=== PATIENT | female | born 1990 | race Caucasian/White ===

== ENCOUNTER 2017-02-09 19:29 | Emergency (ER) | payer SELFPAY | END 2017-02-09 21:45 | disposition home or self-care (01) | LOC: D.ER 19:29 | DX: K04.7 Periapical abscess without sinus (principal); T14.8 Other injury of unspecified body region; X58.XXXA Exposure to other specified factors, initial encounter; Y93.89 Activity, other specified; Y92.89 Other specified places as the place of occurrence of the external cause; F17.200 Nicotine dependence, unspecified, uncomplicated ==

== ENCOUNTER 2017-06-16 19:11 | Emergency (ER) | payer SELFPAY ==
[2011-04-15 10:49] VITALS: BMI 19.2
[2017-06-16 19:43] LABS: APPEARANCE HAZY (CLEAR); BILIRUBIN NEGATIVE (NEGATIVE); COLOR YELLOW (YELLOW); GLUCOSE NEGATIVE (NEGATIVE); KETONE NEGATIVE (NEGATIVE); LEUKOCYTE ESTERASE TRACE (NEGATIVE); NITRITE NEGATIVE (NEGATIVE); PH 5.5 (5.0-6.0); PROTEIN NEGATIVE (NEGATIVE); UROBILINOGEN NORMAL (NORMAL)
[2017-06-16 19:44] LABS: HCG URINE NEGATIVE (NEGATIVE)
[2017-06-16 19:58] LABS: BACTERIA MANY /hpf (NONE SEEN); GRANULAR CAST RARE /lpf (NONE SEEN); HYALINE CAST OCC /lpf (NONE SEEN); MUCUS <1+ /lpf (NONE SEEN); RED CELLS - URINE 0-5 /hpf (0-5)
[2017-06-16 19:59] LABS: AMORPHOUS SEDIMENT <1+ /lpf (NONE SEEN)
== END 2017-06-16 20:17 | disposition home or self-care (01) ==
LOC: D.ER 19:11
PROVIDERS: Emergency Medicine
DX: F19.939 Other psychoactive substance use, unspecified with withdrawal, unspecified (principal); S02.5XXA Fracture of tooth (traumatic), initial encounter for closed fracture; X58.XXXA Exposure to other specified factors, initial encounter; Y93.89 Activity, other specified; Y92.89 Other specified places as the place of occurrence of the external cause; K08.89 Other specified disorders of teeth and supporting structures; R53.83 Other fatigue; R42 Dizziness and giddiness

== ENCOUNTER 2017-06-22 16:14 | Emergency (ER) | payer SELFPAY ==
[2011-04-15 10:49] VITALS: BMI 19.2
[2017-06-22 17:19] LABS: BASOPHILS 0.6 % (0-2); EOSINOPHILS 8.4 % (0-7); HEMATOCRIT 40.7 % (36.0-48.0); IMMATURE GRANULOCYTES 0.1 % (0-5); LYMPHOCYTES 18.2 % (15-50); MCH 28.3 pg (26.0-34.0); MCHC 31.9 g/dL (31.0-37.0); MCV 88.7 fL (80.0-100.0); MONOCYTES 6.5 % (2-11); NEUTROPHILS 66.2 % (40-80); PLATELET COUNT 273 10x3/uL (130-400); RBC 4.59 10x6/uL (4.00-5.40); RDW 14.6 % (11.5-14.5)
[2017-06-22 17:36] LABS: ALBUMIN 4.4 g/dL (3.4-5.0); ALKALINE PHOSPHATASE 72 U/L (46-116); ALT (SGPT) 16 U/L (10-68); BILIRUBIN - TOTAL 0.26 mg/dL (0.2-1.3); CALC OSMOLALITY 276 mosm/kg (275-300); CALCIUM 8.7 mg/dL (8.5-10.1); CARBON DIOXIDE 27.1 mmol/L (21.0-32.0); CHLORIDE - SERUM 104 mmol/L (98-107); CREATININE - SERUM 0.6 mg/dL (0.6-1.3); GLUCOSE 96 mg/dL (74-106); POTASSIUM - SERUM 4.6 mmol/L (3.5-5.1); PROTEIN - SERUM 7.4 g/dL (6.4-8.2); SODIUM 138 mmol/L (136-145); UREA NITROGEN 14 mg/dL (7-18); eGFR NON AFRICAN AMERICAN > 90 mL/min (90-120)
[2017-06-22 19:22] LABS: HCG URINE NEGATIVE (NEGATIVE)
[2017-06-22 19:28] LABS: APPEARANCE CLEAR (CLEAR); BILIRUBIN NEGATIVE (NEGATIVE); COLOR YELLOW (YELLOW); GLUCOSE NEGATIVE (NEGATIVE); KETONE NEGATIVE (NEGATIVE); LEUKOCYTE ESTERASE NEGATIVE (NEGATIVE); NITRITE NEGATIVE (NEGATIVE); PROTEIN NEGATIVE (NEGATIVE); UROBILINOGEN NORMAL (NORMAL)
[2017-06-22 19:30] LABS: UDS - AMPHET NEGATIVE QUAL (NEGATIVE); UDS - BARB NEGATIVE QUAL (NEGATIVE); UDS - BENZO NEGATIVE QUAL (NEGATIVE); UDS - COCAINE NEGATIVE QUAL (NEGATIVE); UDS - METH NEGATIVE QUAL (NEGATIVE); UDS - OPIATE NEGATIVE QUAL (NEGATIVE); UDS - PCP NEGATIVE QUAL (NEGATIVE); UDS - THC NEGATIVE QUAL (NEGATIVE)
== END 2017-06-22 20:20 | disposition home or self-care (01) ==
LOC: D.ER 16:14
PROVIDERS: Emergency Medicine
DX: T43.595A Adverse effect of other antipsychotics and neuroleptics, initial encounter (principal); Y92.89 Other specified places as the place of occurrence of the external cause; F17.200 Nicotine dependence, unspecified, uncomplicated

== ENCOUNTER 2019-09-26 12:06 | Emergency (ER) | payer MEDICAID ==
[~2019-09-26] VITALS: Ht 157.5 cm; Wt 46.8 kg
[2019-09-26 12:17] VITALS: Ht 157.5 cm; Wt 46.8 kg
[2019-09-26 12:56] LABS: BASOPHILS 0.3 % (0-2); EOSINOPHILS 3.1 % (0-7); HEMATOCRIT 40.8 % (36.0-48.0); HEMOGLOBIN 13.3 g/dL (12-16); IMMATURE GRANULOCYTES 0.1 % (0-5); LYMPHOCYTES 19.3 % (15-50); MCH 28.7 pg (26.0-34.0); MCHC 32.6 g/dL (31.0-37.0); MCV 88.1 fL (80.0-100.0); MEAN PLATELET VOLUME 10.1 fL (7.4-10.4); MONOCYTES 8.6 % (2-11); NEUTROPHILS 68.6 % (40-80); PLATELET COUNT 258 10x3/uL (130-400); RBC 4.63 10x6/uL (4.00-5.40); RDW 14.3 % (11.5-14.5)
[2019-09-26 13:03] LABS: CALC OSMOLALITY 273 mosm/kg (275-300); CALCIUM 9.3 mg/dL (8.5-10.1); CARBON DIOXIDE 25.7 mmol/L (21.0-32.0); CHLORIDE - SERUM 103 mmol/L (98-107); CREATININE - SERUM 0.6 mg/dL (0.6-1.3); GLUCOSE 95 mg/dL (74-106); POTASSIUM - SERUM 3.8 mmol/L (3.5-5.1); SODIUM 138 mmol/L (136-145); UREA NITROGEN 7 mg/dL (7-18); eGFR NON AFRICAN AMERICAN > 90 mL/min (90-120)
[2019-09-26 13:15] LABS: ALKALINE PHOSPHATASE 66 U/L (46-116); ALT (SGPT) 17 U/L (10-68); HCG - QUANTITATIVE (MATERNAL) 35 mIU/mL; HCG SERUM POSITIVE (NEGATIVE); PROTEIN - SERUM 7.8 g/dL (6.4-8.2)
[2019-09-26 13:24] LABS: APPEARANCE CLEAR (CLEAR); BILIRUBIN NEGATIVE (NEGATIVE); COLOR YELLOW (YELLOW); GLUCOSE NEGATIVE (NEGATIVE); KETONE NEGATIVE (NEGATIVE); NITRITE NEGATIVE (NEGATIVE); PROTEIN NEGATIVE (NEGATIVE); SPECIFIC GRAVITY 1.015 (1.005-1.020); UROBILINOGEN NORMAL (NORMAL)
[2019-09-26 13:57] VITALS: BP 110/68
[2019-09-29 20:06] LABS: CHLAMYDIA TRACHOMATIS, NAA Negative (Negative)
== END 2019-09-26 13:57 | disposition home or self-care (01) ==
LOC: D.ER 12:06
PROVIDERS: Family Medicine
DX: Z32.01 Encounter for pregnancy test, result positive (principal)

== ENCOUNTER 2019-10-12 11:34 | Emergency (ER) | payer MEDICAID ==
[~2019-10-12] VITALS: Ht 157.5 cm; Wt 45.0 kg
[2019-10-12 11:54] VITALS: Ht 157.5 cm; Wt 45.0 kg
[2019-10-12 12:16] LABS: APPEARANCE CLEAR (CLEAR); BILIRUBIN NEGATIVE (NEGATIVE); COLOR STRAW (YELLOW); GLUCOSE NEGATIVE (NEGATIVE); KETONE NEGATIVE (NEGATIVE); NITRITE NEGATIVE (NEGATIVE); PROTEIN NEGATIVE (NEGATIVE); SPECIFIC GRAVITY 1.005 (1.005-1.020); UROBILINOGEN NORMAL (NORMAL)
[2019-10-12 12:22] LABS: BASOPHILS 0.6 % (0-2); EOSINOPHILS 4.7 % (0-7); HEMATOCRIT 38.8 % (36.0-48.0); HEMOGLOBIN 12.8 g/dL (12-16); IMMATURE GRANULOCYTES 0.2 % (0-5); LYMPHOCYTES 21.2 % (15-50); MCH 29.1 pg (26.0-34.0); MCV 88.2 fL (80.0-100.0); MEAN PLATELET VOLUME 9.7 fL (7.4-10.4); MONOCYTES 7.9 % (2-11); NEUTROPHILS 65.4 % (40-80); PLATELET COUNT 298 10x3/uL (130-400); RDW 13.9 % (11.5-14.5); WBC 5.3 10x3/uL (4.8-10.8)
[2019-10-12 12:35] LABS: HCG SERUM POSITIVE (NEGATIVE)
[2019-10-12 12:37] LABS: CALC OSMOLALITY 279 mosm/kg (275-300); CALCIUM 9.2 mg/dL (8.5-10.1); CARBON DIOXIDE 29.8 mmol/L (21.0-32.0); CHLORIDE - SERUM 104 mmol/L (98-107); CREATININE - SERUM 0.5 mg/dL (0.6-1.3); GLUCOSE 74 mg/dL (74-106); SODIUM 142 mmol/L (136-145); UREA NITROGEN 6 mg/dL (7-18); eGFR NON AFRICAN AMERICAN > 90 mL/min (90-120)
[2019-10-12 12:43] LABS: ALBUMIN 4.1 g/dL (3.4-5.0); ALKALINE PHOSPHATASE 56 U/L (46-116); ALT (SGPT) 19 U/L (10-68); BILIRUBIN - TOTAL 0.46 mg/dL (0.2-1.3); PROTEIN - SERUM 7.4 g/dL (6.4-8.2)
[2019-10-12 14:56] VITALS: BP 123/77
== END 2019-10-12 14:57 | disposition home or self-care (01) ==
LOC: D.ER 11:34
PROVIDERS: Emergency Medicine
DX: O26.851 Spotting complicating pregnancy, first trimester (principal); Z3A.01 Less than 8 weeks gestation of pregnancy

== ENCOUNTER 2019-11-10 21:39 | Emergency (ER) | payer MEDICAID ==
[~2019-11-10] VITALS: Ht 157.5 cm; Wt 45.5 kg
[2019-11-10 22:23] VITALS: Ht 157.5 cm; Wt 45.5 kg
[2019-11-10 22:53] LABS: APPEARANCE CLEAR (CLEAR); BILIRUBIN NEGATIVE (NEGATIVE); COLOR YELLOW (YELLOW); GLUCOSE NEGATIVE (NEGATIVE); KETONE MODERATE mg/dL (NEGATIVE); NITRITE NEGATIVE (NEGATIVE); PROTEIN NEGATIVE (NEGATIVE); UROBILINOGEN NORMAL (NORMAL)
[2019-11-10 22:55] LABS: BACTERIA FEW /hpf (NEGATIVE); EPITHELIAL CELLS OCC /hpf (0-5); RED CELLS - URINE OCC /hpf (0-5); WHITE CELLS - URINE 0-5 /hpf (NEGATIVE)
[2019-11-10] MEDS ORDERED: GUAIFENESI100 MG/5 M PO (23:34)
[2019-11-10] MEDS ORDERED: ZOFRAN ODT4 MG/UDTAB PO (23:34)
[2019-11-10] MEDS ORDERED: ZPAK PO (23:34)
[2019-11-10 23:44] LABS: HEMOGLOBIN 12.5 g/dL (12-16); MCH 29.3 pg (26.0-34.0); MCHC 33.8 g/dL (31.0-37.0); MCV 86.7 fL (80.0-100.0); MEAN PLATELET VOLUME 9.7 fL (7.4-10.4); PLATELET COUNT 259 10x3/uL (130-400); RBC 4.27 10x6/uL (4.00-5.40); RDW 12.7 % (11.5-14.5); WBC 8.2 10x3/uL (4.8-10.8)
[2019-11-11 00:12] VITALS: BP 115/78
[2019-11-11 00:17] LABS: ALBUMIN 3.8 g/dL (3.4-5.0); ALKALINE PHOSPHATASE 59 U/L (46-116); ALT (SGPT) 17 U/L (10-68); BILIRUBIN - TOTAL 0.35 mg/dL (0.2-1.3); CALC OSMOLALITY 271 mosm/kg (275-300); CALCIUM 8.8 mg/dL (8.5-10.1); CHLORIDE - SERUM 102 mmol/L (98-107); CREATININE - SERUM 0.5 mg/dL (0.6-1.3); GLUCOSE 86 mg/dL (74-106); HCG - QUANTITATIVE (MATERNAL) 88164 mIU/mL; PROTEIN - SERUM 7.1 g/dL (6.4-8.2); SODIUM 138 mmol/L (136-145); UREA NITROGEN 5 mg/dL (7-18); eGFR NON AFRICAN AMERICAN > 90 mL/min (90-120)
== END 2019-11-11 00:13 | disposition home or self-care (01) ==
LOC: D.ER 21:39
PROVIDERS: Family Medicine
DX: O99.511 Diseases of the respiratory system complicating pregnancy, first trimester (principal); Z3A.10 10 weeks gestation of pregnancy; R51 Headache; R11.0 Nausea; R10.32 Left lower quadrant pain

== ENCOUNTER 2020-02-24 18:08 | Outpatient (CLI) | payer MEDICAID ==
[2019-11-10 22:23] VITALS: BMI 18.3
[~2020-02-24 18:08] MED LIST: GUAIFENESI100 MG/5 M PO; ZOFRAN ODT4 MG/UDTAB PO; ZPAK PO
== END 2020-02-24 21:03 | disposition home or self-care (01) ==
LOC: D.LDO 18:08
PROVIDERS: ATTEND Obstetrics & Gynecology
DX: O26.899 Other specified pregnancy related conditions, unspecified trimester (principal); Z3A.00 Weeks of gestation of pregnancy not specified

== ENCOUNTER → 2020-02-28 15:21 | Outpatient (CLI) | payer MEDICAID ==
[2019-11-10 22:23] VITALS: BMI 18.3
[2020-02-28 16:12] LABS: HEMATOCRIT 33.9 % (36.0-48.0)
[2020-02-28 16:20] LABS: BILIRUBIN NEGATIVE (NEGATIVE); GLUCOSE NEGATIVE (NEGATIVE); KETONE NEGATIVE (NEGATIVE); NITRITE NEGATIVE (NEGATIVE); UROBILINOGEN NORMAL (NORMAL)
== END | disposition home or self-care (01) ==
LOC: D.LDO 15:21
PROVIDERS: ATTEND Obstetrics & Gynecology
DX: O26.892 Other specified pregnancy related conditions, second trimester (principal); Z3A.25 25 weeks gestation of pregnancy; M54.5 Low back pain

== ENCOUNTER 2020-03-07 21:57 | Outpatient (CLI) | payer MEDICAID ==
[2019-11-10 22:23] VITALS: BMI 18.3
[2020-03-07 22:46] LABS: BILIRUBIN NEGATIVE (NEGATIVE); GLUCOSE NEGATIVE (NEGATIVE); KETONE NEGATIVE (NEGATIVE); NITRITE NEGATIVE (NEGATIVE); UROBILINOGEN NORMAL (NORMAL)
== END 2020-03-08 00:10 | disposition home or self-care (01) ==
LOC: D.LDO 21:57 → D.LD 23:39 → D.LDO 03-08 00:10
PROVIDERS: ATTEND Obstetrics & Gynecology
DX: O26.899 Other specified pregnancy related conditions, unspecified trimester (principal); Z3A.00 Weeks of gestation of pregnancy not specified; R10.2 Pelvic and perineal pain; M54.9 Dorsalgia, unspecified; N85.8 Other specified noninflammatory disorders of uterus

== ENCOUNTER → 2020-03-21 16:05 | Outpatient (CLI) | payer MEDICAID ==
[2019-11-10 22:23] VITALS: BMI 18.3
[2020-03-21 17:47] LABS: BILIRUBIN NEGATIVE (NEGATIVE); GLUCOSE NEGATIVE (NEGATIVE); KETONE NEGATIVE (NEGATIVE); NITRITE NEGATIVE (NEGATIVE); SPECIFIC GRAVITY 1.005 (1.005-1.020); UROBILINOGEN NORMAL (NORMAL)
== END | disposition home or self-care (01) ==
LOC: D.LDO 16:05
PROVIDERS: ATTEND Obstetrics & Gynecology
DX: O26.899 Other specified pregnancy related conditions, unspecified trimester (principal); Z3A.00 Weeks of gestation of pregnancy not specified; M54.5 Low back pain

== ENCOUNTER 2020-03-31 18:17 | Emergency (ER) | payer MEDICAID ==
[~2020-03-31] VITALS: Ht 157.5 cm; Wt 55.0 kg
[2020-03-31 18:44] VITALS: Ht 157.5 cm; Wt 55.0 kg
[2020-03-31] MEDS ORDERED: BENADRYL25 MG PO (19:13)
[2020-03-31 19:20] VITALS: BP 110/68
== END 2020-03-31 19:20 | disposition home or self-care (01) ==
LOC: D.ER 18:17
DX: L23.7 Allergic contact dermatitis due to plants, except food (principal)

== ENCOUNTER 2020-04-10 19:19 | Outpatient (CLI) | payer MEDICAID ==
[2020-03-31 18:44] VITALS: BMI 22.2
[~2020-04-10 19:19] MED LIST changes: +BENADRYL25 MG PO
[2020-04-10 21:11] LABS: BILIRUBIN NEGATIVE (NEGATIVE); EPITHELIAL CELLS OCC /hpf (0-5); GLUCOSE NEGATIVE (NEGATIVE); KETONE NEGATIVE (NEGATIVE); NITRITE NEGATIVE (NEGATIVE); RED CELLS - URINE NONE SEEN /hpf (0-5); UROBILINOGEN NORMAL (NORMAL); WHITE CELLS - URINE 0-5 /hpf (NEGATIVE)
[2020-04-10 21:18] LABS: UDS - AMPHET NEGATIVE QUAL (NEGATIVE); UDS - BARB NEGATIVE QUAL (NEGATIVE); UDS - BENZO NEGATIVE QUAL (NEGATIVE); UDS - COCAINE NEGATIVE QUAL (NEGATIVE); UDS - OPIATE NEGATIVE QUAL (NEGATIVE); UDS - PCP NEGATIVE QUAL (NEGATIVE); UDS - THC NEGATIVE QUAL (NEGATIVE)
== END 2020-04-10 22:48 | disposition left against medical advice (07) ==
LOC: D.LDO 19:19 → D.LABREF 19:19 → D.LD 21:46 → D.LDO 22:48
PROVIDERS: ATTEND Obstetrics & Gynecology
DX: O26.899 Other specified pregnancy related conditions, unspecified trimester (principal); Z3A.00 Weeks of gestation of pregnancy not specified; N85.8 Other specified noninflammatory disorders of uterus

== ENCOUNTER 2020-05-15 21:34 | Outpatient (CLI) | payer MEDICAID ==
[2020-03-31 18:44] VITALS: BMI 22.2
[2020-05-15 22:06] LABS: BILIRUBIN NEGATIVE (NEGATIVE); GLUCOSE NEGATIVE (NEGATIVE); KETONE NEGATIVE (NEGATIVE); NITRITE NEGATIVE (NEGATIVE); SPECIFIC GRAVITY 1.005 (1.005-1.020); UROBILINOGEN NORMAL (NORMAL)
[2020-05-15 22:15] LABS: UDS - AMPHET NEGATIVE QUAL (NEGATIVE); UDS - BARB NEGATIVE QUAL (NEGATIVE); UDS - BENZO NEGATIVE QUAL (NEGATIVE); UDS - COCAINE NEGATIVE QUAL (NEGATIVE); UDS - OPIATE NEGATIVE QUAL (NEGATIVE); UDS - PCP NEGATIVE QUAL (NEGATIVE); UDS - THC NEGATIVE QUAL (NEGATIVE)
== END 2020-05-15 22:48 | disposition left against medical advice (07) ==
LOC: D.LDO 21:34
PROVIDERS: ATTEND Student in an Organized Health Care Education/Training Program
DX: O26.893 Other specified pregnancy related conditions, third trimester (principal); Z3A.36 36 weeks gestation of pregnancy; N85.8 Other specified noninflammatory disorders of uterus; R11.0 Nausea